=== PATIENT | female | born 1960 | race Caucasian/White ===

== ENCOUNTER 2017-06-05 06:13 | Observation (INO) | payer MEDICARE ==
[2017-06-05] MEDS ORDERED: Thrombin 5000 UNITS/5 ML VIAL ONE (06:33)
[2017-06-05] MEDS ORDERED: Sodium Chloride 0.9% 10 ML ONE (06:33)
[2017-06-05] MEDS ORDERED: CEFAZOLIN/Water 2 GM/20 ML SYRINGE ONE (06:57)
[2017-06-05 06:59] LABS: Prothrombin Time 13.5 SEC (12.0-14.7)
[2017-06-05 07:07] LABS: #Basophils 0.1 thou/uL (0.0-0.2); #Eosinphils 0.2 thou/uL (0.0-0.7); #Lymphocytes 3.5 thou/uL (1.20-3.40); #Monocytes 1.2 thou/uL (0.11-0.59); #Neutrophils 4.2 thou/uL (1.40-6.50); %Basophils 0.8 % (0.0-1.0); %Eosinophils 2.6 % (0.0-10.0); %Lymphocytes 38.5 % (21.0-51.0); %Monocytes 12.5 % (0.0-10.0); Hematocrit 43.9 % (36.0-47.0); Mean Platelet Volume 6.5 fL (7.4-10.4); Red Blood Cell (RBC) Count 4.62 mill/uL (4.20-5.40); White Blood Cell (WBC) Count 9.2 thou/uL (4.8-10.8)
[2017-06-05 07:10] LABS: Anion Gap 13 mmol/L (10-20); BUN (Urea Nitrogen) 14 mg/dL (9.8-20.1); Calc. Creatinine Clearance 126 mL/min (70-130); Calcium 9.4 mg/dL (7.8-10.44); Carbon Dioxide 24 mmol/L (22-29); Chloride 106 mmol/L (98-107); Estimated GFR-MDRD Greater than 90
[2017-06-05] MEDS ORDERED: Midazolam HCl 2 mg/2 ml Vial ONE (07:12)
[2017-06-05] MEDS ORDERED: Vecuronium 10 MG VIAL ONE ×2 (07:14→07:40)
[2017-06-05] MEDS ORDERED: Phenylephrine 10 MG/NS 250 ML 0 ML ONE (07:14)
[2017-06-05] MEDS ORDERED: Albumin 5% 0 ML ONE (07:14)
[2017-06-05] MEDS ORDERED: Fentanyl 250 MCG/5 ML VIAL ONE (07:34)
[2017-06-05] MEDS ORDERED: Glycopyrrolate 0.2 MG/ML 5 ML SYRINGE ONE (07:40)
[2017-06-05] MEDS ORDERED: Ondansetron HCl/PF 4 MG/2 ML Vial ONE (07:40)
[2017-06-05] MEDS ORDERED: PHENYLEPHRINE-NS 100 MCG/ML 10 ML SYRINGE ONE (07:40)
[2017-06-05] MEDS ORDERED: Lidocaine 2% PF 10 ML AMP (For Epidural Use) ONE (07:40)
[2017-06-05] MEDS ORDERED: Propofol 200 MG/20 ML VIAL ONE ×2 (07:40)
[2017-06-05] MEDS ORDERED: ePHEDrine/0.9% NaCl/PF SYRINGE 50 mg/10 ml ONE (07:40)
[2017-06-05] MEDS ORDERED: Promethazine HCl 25 MG/ML VIAL IM PRN ×3 (08:59→12:14)
[2017-06-05] MEDS ORDERED: HYDROmorphone 2 MG/ML VIAL SLOW IVP PRN ×2 (08:59→12:14)
[2017-06-05] MEDS ORDERED: Meperidine HCl/PF 25 MG/ML VIAL SLOW IVP PRN (08:59)
[2017-06-05] MEDS ORDERED: Ondansetron HCl/PF 4 MG/2 ML Vial IVP PRN ×2 (08:59→12:14)
[2017-06-05] MEDS ORDERED: Morphine Sulfate 2 MG/ML SYRINGE SLOW IVP PRN (08:59)
[2017-06-05] MEDS ORDERED: Promethazine HCl 25 MG/ML VIAL SLOW IVP PRN ×2 (08:59→12:14)
[2017-06-05] MEDS ORDERED: Milk Of Magnesia 30 ML UDCUP PO PRN (10:46)
[2017-06-05] MEDS ORDERED: Mag-Al 1200 mg/1200 mg/30 ML UDCUP PO PRN (10:46)
[2017-06-05] MEDS ORDERED: Acetaminophen/Codeine 30-300mg Tablet PO PRN (10:46)
[2017-06-05] MEDS ORDERED: Fleet Enema 133 ML BOT PR PRN (10:46)
[2017-06-05] MEDS ORDERED: traMADol HCl 50 MG TAB PO PRN (10:46)
[2017-06-05] MEDS ORDERED: tiZANidine HCl 4 MG TAB PO PRN (10:46)
[2017-06-05] MEDS ORDERED: Acetaminophen 325 MG TAB PO PRN (10:46)
[2017-06-05] MEDS ORDERED: Bisacodyl 10 MG SUPP PR PRN (10:46)
[2017-06-05] MEDS ORDERED: Cyclobenzaprine 10 MG TAB PO PRN (10:51)
[2017-06-05] MEDS ORDERED: Fentanyl 100 MCG/2 ML VIAL ONE (10:57)
--- NOTE | 2017-06-05 13:00 | OP ---
DATE OF PROCEDURE: 06/05/2017 OR: OR #11. WOUND TYPE: Type 1 wound. SURGEON: Kit Pyle M.D. MANAGER INSPECTION: Kelvin Norris PA-C. 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 PROCEDURE: 1. C5-C7 anterior neck exposure via a right-sided approach and removal of C6-C7 plate and screw con struct from outside institution. 2. Assessment of fusion, C6-C7. 3. Use of operative microscope for microdissection. 4. C5-C6 diskectomy with preparation of the endplates and placement of interbody spacer packed with local bone autograft obtained from same incision and allograft, C5-C6 for arthrodesis. 5. Anterior cervical plate and screw fixation, C5, C6, C7. PROCEDURE: After informed consent was obtained from the patient, the patient brought to OR 11. Pro per patient pause and identification was carried out. She was placed under excellent general endotr acheal anesthesia and positioned supine on the operating room table. All appropriate points were pa dded. We identified the prior transverse zuleika in the right side of the neck and ke out a more obl ique zuleika to allow for approach to the C5-C7 segment. This area was sterilely cleansed, prepared, a nd draped. Proper patient pause and identification was carried out. The wound was then opened with a combination of sharp, monopolar and blunt dissection. We proceeded lateral to the tracheoesophag eal bundle and medial to the right carotid sheath. We encountered exuberant scar tissue as we antic ipated and entered the prevertebral layer of deep cervical fascia. This area was then opened. We i dentified the prior C6-C7 plate. The screws were then removed and the plate was then lifted off of the bone and it was obvious that there was a small area that was quite linear where it did not appea r as if the patient had fused completely. We then turned our attention to the C5-C6 segment and dis traction occurred there. The microscope was then brought into the field for microdissection. The l ongus colli muscles were swept laterally and the C5-C6 disk space identified. Distraction occurred and the diskectomy was performed. We had excellent decompression of the common dural tube and bilat eral C6 nerve roots. There was no spinal fluid leak. Hemostasis was maximized throughout. We then prepared the endplates. An interbody spacer packed with local bone autograft obtained from [facility] and allograft was impacted and placed into the C5-C6 intervertebral space for arthrodesis. T he microscope was then removed and anterior cervical plate and screw fixation at C5, C6, and C7, the n occurred. Final tightening occurred. Copious irrigation occurred. Hemostasis was maximized thro ughout. The wound was then closed in anatomic layers over a drain. I was pleased with both gross a nd fluoroscopic visualization of the construct.
[2017-06-05] MEDS ORDERED: CEFAZOLIN/Water 2 GM/20 ML SYRINGE SLOW IVP SCH (14:00)
[2017-06-05] MEDS: Morphine 2 MG/ML SYRINGE SLOW IVP PRN ×4 (15:00→23:32)
[2017-06-05] MEDS: Sodium Chloride 0.9% 1,000 ML IV SCH (16:14)
[2017-06-05] MEDS: CEFAZOLIN/Water 2 GM/20 ML SYRINGE SLOW IVP SCH ×2 (16:17→23:31)
[2017-06-05] MEDS: Montelukast Sodium 10 mg Tablet PO SCH (21:57)
[2017-06-05] MEDS: Famotidine 20 MG TAB PO SCH (21:57)
[2017-06-06] MEDS: Sodium Chloride 0.9% 1,000 ML IV SCH ×3 (06:01→18:59)
[2017-06-06] MEDS: Morphine 2 MG/ML SYRINGE SLOW IVP PRN ×4 (06:02→19:53)
[2017-06-06] MEDS: Bupropion 150 MG XL TAB PO SCH (08:20)
[2017-06-06] MEDS: Famotidine 20 MG TAB PO SCH ×2 (08:21→20:38)
[2017-06-06] MEDS: Loratadine 10 MG TAB PO SCH (08:21)
[2017-06-06] MEDS: Amlodipine 5 MG TAB PO SCH (08:21)
[2017-06-06] MEDS ORDERED: FLU VACC QS2017-18 36 mo. & older 0.5 ML SYRINGE IM ONE (09:00)
[2017-06-06] MEDS: CEFAZOLIN/Water 2 GM/20 ML SYRINGE SLOW IVP SCH ×3 (10:33→23:59)
--- NOTE | 2017-06-06 11:27 | PRG ---
DATE OF SERVICE: 06/06/2017 SUBJECTIVE: Ms. Dennis is postoperative day 1 from C5-C7 stabilization and C5-C6 diskectomy. She h as had resolution in her arm pain and is doing well. We went over both intra- and postoperative iss ues, and I should note her strength is good throughout her upper extremities. She is ambulating. H er drain output is 35 mL. She does live alone, and under normal circumstances, we would consider di babita on postop day 1, but I think given that she will have nobody at home with her, I think watch ing her for 1 more day and letting her leave tomorrow would be prudent.
[2017-06-06] MEDS: HYDROcodone/Acetaminophen 7.5/325 mg Tablet PO PRN ×2 (16:21→20:39)
[2017-06-06] MEDS: Montelukast Sodium 10 mg Tablet PO SCH (20:38)
[2017-06-07] MEDS: Morphine 2 MG/ML SYRINGE SLOW IVP PRN ×4 (00:07→13:44)
[2017-06-07] MEDS: HYDROcodone/Acetaminophen 7.5/325 mg Tablet PO PRN ×4 (01:02→13:16)
[2017-06-07] MEDS: CEFAZOLIN/Water 2 GM/20 ML SYRINGE SLOW IVP SCH (07:14)
[2017-06-07] MEDS: Bupropion 150 MG XL TAB PO SCH (08:44)
[2017-06-07] MEDS: Amlodipine 5 MG TAB PO SCH (08:44)
[2017-06-07] MEDS: Loratadine 10 MG TAB PO SCH (08:44)
[2017-06-07] MEDS: Famotidine 20 MG TAB PO SCH (08:45)
--- NOTE | 2017-06-07 09:04 | PRG ---
DATE OF SERVICE: 06/07/2017 NEUROSURGERY PROGRESS NOTE DATE OF SERVICE: I saw Ms. Dennis before she left the hospital this morning. She has had her drain s removed. Neurologically, she is doing well and she is happy with the results of the operation cur rently. She has followup arrangements made in our clinic by Dr. Pyle. We will discharge her toda y. We went over activity restrictions and wound care.
[2017-06-07 15:46] VITALS: BP 123/58; TEMP 98.2
--- NOTE | 2017-06-09 13:15 | EKG ---
Test Reason : PREOP Blood Pressure : / mmHG Vent. Rate : 075 BPM Atrial Rate : 075 BPM P-R Int : 184 ms QRS Dur : 082 ms QT Int : 392 ms P-R-T Axes : 052 038 050 degrees QTc Int : 437 ms Normal sinus rhythm Normal ECG No previous ECGs available Confirmed by EVELYN DE LA O ([id number]) on 06/09/2017 1:15:25 PM Referred By: ISSAC Confirmed By:EVELYN DE LA O
--- OUTSIDE RECORDS SUMMARY | 2017-06-10 11:46 | XMS | Clinical Summary ---
:1960 Author Organization [facility] Address [address] [place] [address] Phone Care Team Providers Name Role Phone , Primary Care Provider Unavailable Allergies Not on File Current Medications Not on file Active Problems Not on file Social History Tobacco Use Types Packs/Day Years Used Date Never Assessed Sex Assigned at Date Recorded Not on file Last Filed Vital Signs Not on file Plan of Treatment Not on file Results Not on filefrom Last 3 Months
== END 2017-06-07 15:00 | disposition home or self-care (01) ==
LOC: SURG A 06:13 → INTOOBSV 06:13 → ONC 13:09
PROVIDERS: ADMIT Surgery; ATTEND Surgery
PROC: 0RG2070 Fusion of 2 or more Cervical Vertebral Joints with Autologous Tissue Substitute, Anterior Approach, Anterior Column, Open Approach (ICD-10-PCS; principal; 2017-06-05)
DX: M54.12 Radiculopathy, cervical region (principal); M48.02 Spinal stenosis, cervical region; Z88.1 Allergy status to other antibiotic agents; Z79.899 Other long term (current) drug therapy; Z90.49 Acquired absence of other specified parts of digestive tract; Z90.710 Acquired absence of both cervix and uterus; Z98.890 Other specified postprocedural states; Z87.891 Personal history of nicotine dependence
CPT/HCPCS: 20930; 20936; 22551; 22552 ×2; 22830; 22853 ×2; 22855; 76001; 80048; 85025; 85610; 85730; 93005; 96361 ×3; 96374 ×3; 96375; 96376 ×3; C1713; G0378 ×3; 36415; 93010; A4216; J1170; J2001; J2250; J2270; J2405; J2704; J3010; J3490; P9045